=== PATIENT | female | born 1990 | race Native Hawaiian/Other Pacific Islander ===

== ENCOUNTER 2022-11-01 19:26 | Emergency (ER) | payer OTHER ==
[~2022-11-01] VITALS: Ht 162.6 cm; Wt 62.0 kg
[2022-11-01 19:27] VITALS: BP 133/84; TEMP 98; O2SAT 100
[2022-11-01] MEDS ORDERED: NEOSPORIN OINT 0.9 GM PKT TOP ONE (20:40)
[2022-11-01] MEDS ORDERED: LIDOCAINE W/EPINEPHRINE 1% 20ML VIAL SC ONE (20:40)
[2022-11-01] MEDS ORDERED: CEPHALEXIN 500 MG CAP PO ONE (20:45)
[2022-11-01] MEDS ORDERED: CEPH500C PO (21:06)
== END 2022-11-01 21:50 | disposition home or self-care (01) ==
LOC: M ED 19:26
DX: S61.412A Laceration without foreign body of left hand, initial encounter (principal); W26.0XXA Contact with knife, initial encounter; Y92.098 Other place in other non-institutional residence as the place of occurrence of the external cause; Z91.040 Latex allergy status; Z91.018 Allergy to other foods